=== PATIENT | male | born 1995 | race Two or more races ===

== ENCOUNTER → 2020-07-04 12:24 | Outpatient (CLI) | payer OTHER | END | disposition home or self-care (01) | LOC: LAB 07:45 | PROVIDERS: ATTEND Emergency Medicine Pediatric Emergency Medicine | DX: Z03.818 Encounter for observation for suspected exposure to other biological agents ruled out (principal) ==

== ENCOUNTER → 2020-07-08 | Outpatient (CLI) | payer OTHER | END | disposition home or self-care (01) | LOC: PPH VACUNA | DX: Z23 Encounter for immunization (principal) ==

== ENCOUNTER 2022-04-30 02:19 | Emergency (ER) | payer OTHER ==
[~2022-04-30] VITALS: Ht 167.6 cm; Wt 77.1 kg
== END 2022-04-30 05:30 | disposition left against medical advice (07) ==
LOC: ER 02:19
DX: Z53.21 Procedure and treatment not carried out due to patient leaving prior to being seen by health care provider (principal)

== ENCOUNTER 2022-08-07 15:20 | Outpatient (CLI) | payer OTHER | END 2022-08-07 15:43 | disposition home or self-care (01) | LOC: MRI 15:20 → RAD 15:20 | PROVIDERS: ATTEND Physical Medicine & Rehabilitation | DX: M25.551 Pain in right hip (principal) | CPT/HCPCS: 73718 ==

== ENCOUNTER 2022-09-25 08:31 | Outpatient (CLI) | payer OTHER | END 2022-09-25 08:47 | disposition home or self-care (01) | LOC: MRI 08:31 | DX: M25.859 Other specified joint disorders, unspecified hip (principal); S73.191A Other sprain of right hip, initial encounter | CPT/HCPCS: 73718 ==

== ENCOUNTER 2024-01-24 21:56 | Emergency (ER) | payer OTHER ==
[~2024-01-24] VITALS: Ht 167.6 cm; Wt 90.7 kg
[2024-01-24] MEDS ORDERED: NAPR500T14 PO (22:03)
[2024-01-24] MEDS ORDERED: TYLENOL ARTHRI650 MG PO (22:03)
[2024-01-24] MEDS ORDERED: 0.9 % SODIUM CHLORIDE 1,000 ML IV ONE (22:30)
[2024-01-24] MEDS ORDERED: KETOROLAC TROMETHAMINE 30 MG VIAL IM ONE (22:30)
[2024-01-24] MEDS ORDERED: FAMOtidine 10 MG/ML (4ML VIAL) IV ONE (22:30)
[2024-01-24 23:14] LABS: URINE APPEARANCE Clear; URINE BILIRRUBIN Negative (NEGATIVE); URINE BLOOD Negative; URINE COLOR Yellow; URINE GLUCOSE Negative (NEGATIVE); URINE KETONE Negative (NEGATIVE); URINE LEUKOCYTE Negative; URINE NITRATE Negative; URINE PROTEIN Negative (NEGATIVE); URINE UROBILINOGEN 0.2 E.U./dl
[2024-01-24 23:14] LABS: HEMATOCRIT 43.2 % (39.0-48.0); HEMOGLOBIN 14.4 g/dL (13-16.00); MEAN CORPUSCULAR HEMOGLOBIN 28.3 pg (27.00-32.0); MEAN CORPUSCULAR HGB CONC 33.3 g/dl (32.0-36.0); PLATELET COUNT 206 K/uL (150-450); RED BLOOD COUNT 5.08 M/uL (4.00-6.00)
[2024-01-24 23:18] LABS: URINE BACTERIA 13.8 uL (0.0-1933)
[2024-01-24 23:30] LABS: URINE CAST 0.15 uL (0.0-1.40); URINE EPITHELIAL CELLS 1.3 uL (0.0-38.8); URINE RBC 1.3 uL (0.0-20.8)
[2024-01-24 23:44] LABS: ALBUMIN 4.4 gm/dL (3.4-5.0); BILIRUBIN TOTAL 0.77 mg/dL (0.3-1.2); CALCIUM 9.4 mg/dL (8.5-10.1); CREATININE SERUM 1.27 mg/dL (0.70-1.30); GFR 68.55; GLOBULINA 3.4 G/DL (2.4-3.5); POTASSIUM 3.93 mEq/L (3.5-5.1); TOTAL PROTEIN 7.8 gm/dL (6.4-8.2)
[2024-01-25 00:42] LABS: COCAINE NEGATIVE (NEGATIVE); METHADONE NEGATIVE (NEGATIVE); OPIATES NEGATIVE (NEGATIVE); THC ( Cannabinoids) POSITIVE (NEGATIVE)
[2024-01-25 02:00] LABS: ABG PH 7.357 (7.35-7.45); ABG PO2 105.7 mmHg (80-100); ABG pCO2 38.8 mmHg (35-45); BASE EXCESS -3.8 mmol/l; BICARBONATE 21.3 mmol/l (23-25); SaO2 97.7 %; Tco2 22.5 mmol/l
[2024-01-25 02:27] LABS: allen test SATISFACTORY; o2 21 %; puncture site RADIAL RIGHT
== END 2024-01-25 03:38 | disposition home or self-care (01) ==
LOC: ER 21:58
PROVIDERS: General Practice
DX: R00.2 Palpitations (principal); F12.10 Cannabis abuse, uncomplicated

== ENCOUNTER 2024-08-12 04:22 | Emergency (ER) | payer OTHER ==
[~2024-08-12] VITALS: Ht 167.6 cm; Wt 81.6 kg
[~2024-08-12 04:22] MED LIST: NAPR500T14 PO; TYLENOL ARTHRI650 MG PO
[2024-08-12] MEDS ORDERED: ONDANSETRON HCL 2 MG/ML VIAL IV STA (05:25)
[2024-08-12] MEDS ORDERED: 0.9 % SODIUM CHLORIDE 1,000 ML IV STA (05:25)
[2024-08-12] MEDS ORDERED: FAMOtidine 10 MG/ML (4ML VIAL) IV PUSH STA (05:26)
== END 2024-08-12 07:58 | disposition home or self-care (01) ==
LOC: ER 04:22 → EDSEX 04:27 → ER 07:58
DX: K29.70 Gastritis, unspecified, without bleeding (principal); F10.10 Alcohol abuse, uncomplicated